=== PATIENT | female | born 1980 | race Caucasian/White ===

== ENCOUNTER 2016-11-03 03:03 | Emergency (ER) | payer OTHER ==
[2016-11-03] MEDS ORDERED: DOXYCYCLINE HYCLATE 100 MG CAPSULE PO ONE (03:22)
[2016-11-03] MEDS ORDERED: PHENAZOPYRIDINE HCL 100 MG TABLET (FP) PO STA (03:22)
--- NOTE | 2016-11-03 03:23 | PDOC ---
History of Present Illness - General History Source: Patient Exam Limitations: No Limitations - History of Present Illness Initial Comments: 11/03/16 03:25 The patient is a 35 year old female with a significant past medical history of bronchitis who presents to the emergency department for further evaluation of dysuria for one hour. The patient reports that she work up to go to the bathroom at approximately 2:40 and had pain while urinating. The patient states that she took 3 motrin with no relief of pain. The patient notes that her LMP was February 2016. <Jossue Oliver - Last Filed: 11/03/16 03:25> - General History Source: Patient <[email or web address] gilmore - Last Filed: 11/03/16 04:12> - General Stated Complaint: PAIN WITH URINATION Time Seen by Provider: 11/03/16 03:19 Past History <Jossue Oliver - Last Filed: 11/03/16 03:25> - Past Medical History Asthma: Yes (childhood) Hypercholesterolemia: Yes Suicide Attempt (Hx): No - Reproductive History (#): 1 Para: 1 Therapeutic (s) & number: No - Immunization History Immunization Up to Date: No - Psycho/Social/Smoking Cessation Hx Anxiety: No Suicidal Ideation: No Smoking Status: No Smoking History: Never smoked Have you smoked in the past 12 months: No Number of Cigarettes Smoked Daily: 0 Hx Alcohol Use: No Drug/Substance Use Hx: No Substance Use Type: None <Benny Walker - Last Filed: 11/03/16 04:12> - Past Medical History Allergies/Adverse Reactions: Allergies Allergy/AdvReac Type Severity Reaction Status Date / Time Penicillins Allergy Severe Difficulty Verified 11/03/16 03:49 Breathing sulfamethoxazole Allergy Intermediate Rash Verified 11/03/16 03:49 [From Bactrim] trimethoprim [From Bactrim] Allergy Intermediate Rash Verified 11/03/16 03:49 clarithromycin [From Biaxin] Allergy Mild Rash Verified 11/03/16 03:49 levofloxacin [From Levaquin] Allergy Verified 11/03/16 03:49 metronidazole [From Flagyl] AdvReac Verified 11/03/16 03:49 Home Medications: Ambulatory Orders Doxycycline Hyclate [Vibramycin -] 100 mg PO BID #14 cap 11/03/16 Oxycodone HCl/Acetaminophen [Percocet 5-325 mg Tablet] 1 - 2 tab PO Q6H #20 tablet MDD 4 11/03/16 Phenazopyridine HCl [Pyridium -] 100 mg PO PC #6 tablet 11/03/16 Review of Systems - Review of Systems Able to Perform ROS?: Yes Comments:: 11/03/16 03:25 CONSTITUTIONAL: Absent: fever, chills, diaphoresis, generalized weakness, malaise, loss of appetite HEENT: Absent: rhinorrhea, nasal congestion, throat pain, throat swelling, difficulty swallowing, mouth swelling, ear pain, eye pain, visual Changes CARDIOVASCULAR: Absent: chest pain, syncope, palpitations, irregular heart rate, lightheadedness , peripheral edema RESPIRATORY: Absent: cough, shortness of breath, dyspnea with exertion, orthopnea, wheezing, stridor, hemoptysis GASTROINTESTINAL: Absent: abdominal pain, abdominal distension, nausea, vomiting, diarrhea, constipation, melena, hematochezia GENITOURINARY: Present: Dysuria Absent:, frequency, urgency, hesitancy, hematuria, flank pain, genital pain MUSCULOSKELETAL: Absent: myalgia, arthralgia, joint swelling SKIN: Absent: rash, itching, pallor HEMATOLOGIC/IMMUNOLOGIC: Absent: easy bleeding, easy bruising, lymphadenopathy, frequent infections ENDOCRINE: Absent: unexplained weight gain, unexplained weight loss, heat intolerance, cold intolerance NEUROLOGIC: Absent: headache, focal weakness or paresthesias, dizziness, unsteady gait, seizure, mental status changes, bladder or bowel incontinence PSYCHIATRIC: Absent: anxiety, depression, suicidal or homicidal ideation, hallucinations. <Jossue Oliver - Last Filed: 11/03/16 03:25> *Physical Exam - Physical Exam Comments: 11/03/16 03:26 GENERAL: (+) Well developed, well nourished. Awake and alert. In no moderate distress. HEENT: Normocephalic, atraumatic. PERRLA, EOMI. No conjunctival pallor. Sclerae are non -icteric. Moist mucous membranes. Oropharynx is clear. NECK: Supple. Full ROM. No JVD. Carotid pulses 2+ and symmetric, without bruits. No thyromegaly. No lymphadenopathy. CARDIOVASCULAR: Regular rate and rhythm. No murmurs, rubs, or gallops. Distal pulses are 2+ and symmetric. PULMONARY: No evidence of respiratory distress. Lungs clear to auscultation bilaterally. No wheezing, rales or rhonchi. ABDOMINAL: Soft. Non-tender. Non-distended. No rebound or guarding. No organomegaly. Normoactive bowel sounds. MUSCULOSKELETAL Normal range of motion at all joints. No bony deformities or tenderness. No CVA tenderness. EXTREMITIES: No cyanosis. No clubbing. No edema. No calf tenderness. SKIN: Warm and dry. Normal capillary refill. No rashes. No jaundice. NEUROLOGICAL: Alert, awake, appropriate. Cranial nerves 2-12 intact. No deficits to light touch and temperature in face, upper extremities and lower extremities. No motor deficits in the in face, upper extremities and lower extremities. Normoreflexic in the upper and lower extremities. Normal speech. Toes are downgoing bilaterally. Gait is normal without ataxia. PSYCHIATRIC: Cooperative. Good eye contact. Appropriate mood and affect. <Jossue Oliver - Last Filed: 11/03/16 03:25> Medical Decision Making - Medical Decision Making 11/03/16 04:10 Dr. Walker: The scribe's documentation has been prepared under my direction and personally reviewed by me in its entirery. I confirm that the note above accurately reflects all work, treatment, procedures, and medical decision making performed by me. Pt with UIT and multiple antibiotic allergies. Rx Doxycycline 100mg , Pyridium 100mg. <Benny Walker - Last Filed: 11/03/16 04:12> *DC/Admit/Observation/Transfer - Attestations Scribe Attestion: 11/03/16 03:26 Documentation prepared by Jossue Oliver, acting as medical laboratory scientist for Benny Walker MD. <Jossue Oliver - Last Filed: 11/03/16 03:25> - Discharge Dispostion Admit: No <Bneny Walker - Last Filed: 11/03/16 04:12> Diagnosis at time of Disposition: Urinary tract infection Qualifiers: Urinary tract infection type: site unspecified Hematuria presence: without hematuria Qualified Code(s): N39.0 - Urinary tract infection, site not specified - Discharge Dispostion Disposition: HOME Condition at time of disposition: Stable - Prescriptions Prescriptions: Oxycodone HCl/Acetaminophen [Percocet 5-325 mg Tablet] 1 - 2 tab PO Q6H #20 tablet MDD 4 Phenazopyridine HCl [Pyridium -] 100 mg PO PC #6 tablet Doxycycline Hyclate [Vibramycin -] 100 mg PO BID #14 cap - Referrals Referrals: Julio Cesar Escobar [Primary Care Provider] - - Patient Instructions Printed Discharge Instructions: DI for Urinary Tract Infection (UTI) Additional Instructions: Take medications as directed. Avoid alcohol when taking Percocet. Drink plenty fluids - Post Discharge Activity Work/School Note: Back to Work
[2016-11-03] MEDS ORDERED: PHENAZOPYRIDINE HCL 100 MG TABLET (FP) ONE (03:32)
[2016-11-03 03:35] VITALS: BP 152/86; PULSE 85; TEMP 97.9; BMI 44.4
[2016-11-03 04:00] LABS: URINE APPEARANCE CLOUDY; URINE BILIRUBIN NEGATIVE (NEGATIVE); URINE COLOR YELLOW; URINE GLUCOSE (UA) NEGATIVE (NEGATIVE); URINE KETONE NEGATIVE (NEGATIVE); URINE NITRITE POSITIVE (NEGATIVE); URINE UROBILINOGEN NEGATIVE E.U./dl (0.2-1.0)
[2016-11-03 04:03] LABS: URINE BLOOD 3+ (NEGATIVE); URINE LEUK ESTERASE 3+ (NEGATIVE); URINE PROTEIN 2+ (NEGATIVE)
[2016-11-03] MEDS ORDERED: OXYCODONE/APAP 5/325MG COMBO TABLET PO ONE (04:05)
[2016-11-03] MEDS ORDERED: OXYCODONE/APAP 5/325MG COMBO TABLET ONE (04:06)
[2016-11-03 04:07] LABS: URINE MUCUS RARE; URINE RBC 975 /hpf (0-3); URINE WBC 376 /hpf (3-5)
== END 2016-11-03 04:19 | disposition home or self-care (01) ==
LOC: JER 03:03
DX: N39.0 Urinary tract infection, site not specified (principal); J45.909 Unspecified asthma, uncomplicated
CPT/HCPCS: 81003; 81015; 84703; 87086; 87186; 99282-25

== ENCOUNTER 2017-05-01 18:06 | Emergency (ER) | payer OTHER ==
[2017-05-01 18:17] VITALS: BP 143/69; PULSE 86; TEMP 98.7; BMI 45.1
--- NOTE | 2017-05-01 19:04 | PDOC ---
History of Present Illness - General Chief Complaint: Injury Stated Complaint: INJURY Time Seen by Provider: 05/01/17 18:33 History Source: Patient - History of Present Illness Occurred: reports: other Severity: Yes: moderate Lower Extremity Pain Location: right: 2nd toe, 3rd toe Method of Injury: Yes: direct blow Past History - Past Medical History Allergies/Adverse Reactions: Allergies Allergy/AdvReac Type Severity Reaction Status Date / Time Penicillins Allergy Severe Difficulty Verified 05/01/17 18:13 Breathing sulfamethoxazole Allergy Intermediate Rash Verified 05/01/17 18:13 [From Bactrim] trimethoprim [From Bactrim] Allergy Intermediate Rash Verified 05/01/17 18:13 clarithromycin [From Biaxin] Allergy Mild Rash Verified 05/01/17 18:13 levofloxacin [From Levaquin] Allergy Verified 05/01/17 18:13 metronidazole [From Flagyl] AdvReac Verified 05/01/17 18:13 Home Medications: Ambulatory Orders Unobtainable [Unobtainable] 05/01/17 Asthma: Yes (childhood) Disorders: Yes (UTIs) Hypercholesterolemia: Yes - Reproductive History (#): 1 Para: 1 Therapeutic (s) & number: No - Immunization History Immunization Up to Date: No - Suicide/Smoking/Psychosocial Hx Smoking Status: No Smoking History: Never smoked Have you smoked in the past 12 months: No Number of Cigarettes Smoked Daily: 0 Information on smoking cessation initiated: No Hx Alcohol Use: No Drug/Substance Use Hx: No Substance Use Type: None Review of Systems - Review of Systems Musculoskeletal: Yes: Joint Pain, Joint Swelling *Physical Exam - Vital Signs Last Vital Signs Temp Pulse Resp BP Pulse Ox 98.7 F 86 18 143/69 100 05/01/17 18:13 05/01/17 18:13 05/01/17 18:13 05/01/17 18:13 05/01/17 18:13 - Physical Exam General Appearance: Yes: Appropriately Dressed. No: Apparent Distress HEENT: positive: Normal Voice Neck: positive: Supple Respiratory/Chest: negative: Respiratory Distress Extremity: positive: Other (ecchymosis over MTP joint of R 2nd and 3rd toes w/ diffuse ttp to 3rd toe, no significant swelling) Integumentary: positive: Dry, Warm Neurologic: positive: Fully Oriented, Alert, Normal Mood/Affect ED Treatment Course - RADIOLOGY Radiology Studies Ordered: Category Date Time Status FOOT-RIGHT [RAD] Stat Radiology 05/01/17 18:59 Ordered Medical Decision Making - Medical Decision Making 05/01/17 19:00 36 yo F, p/w pain and swelling to R 2nd/3rd toes s/p injury. Pt states 3 days ago, she struck [place] foot [place] [employer]. Was barefooted at the time. Has been bearing weight See exam R/o foot fx -XR -pain control 05/01/17 19:04 05/01/17 19:21 XR neg for fx. Dc w/ RICE and PMD f/u as needed *DC/Admit/Observation/Transfer Diagnosis at time of Disposition: Foot contusion Qualifiers: Encounter type: initial encounter Laterality: right Qualified Code(s): S90.31XA - Contusion of right foot, initial encounter - Discharge Dispostion Disposition: HOME Condition at time of disposition: Good - Patient Instructions Printed Discharge Instructions: Contusion Additional Instructions: Take motrin as needed for pain until pain subsides
== END 2017-05-01 19:18 | disposition home or self-care (01) ==
LOC: JERFT 18:06
DX: S90.121A Contusion of right lesser toe(s) without damage to nail, initial encounter (principal); W22.8XXA Striking against or struck by other objects, initial encounter; Y93.89 Activity, other specified; Y92.22 Religious institution as the place of occurrence of the external cause; Y99.8 Other external cause status
CPT/HCPCS: 73630-TC-RT; 99281-25